=== PATIENT | male | born 1940 | race Caucasian/White ===

== ENCOUNTER 2017-01-01 04:41 | Emergency (ER) | payer OTHER, MEDICARE ==
[~2017-01-01] VITALS: Ht 177.8 cm; Wt 78.3 kg
[2017-01-01 04:50] VITALS: TEMP 36.5; Ht 177.8 cm; Wt 78.3 kg
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
[2017-01-01] MEDS ORDERED: OPTIRAY 320 IV PRN (05:00)
[2017-01-01 05:22] LABS: INR 1.1 (0.9-1.1); PARTIAL THROMBOPLASTIN RATIO 1.2; PROTHROMBIN TIME (PATIENT) 11.3 SECONDS (9.0-12.0)
[2017-01-01 05:27] LABS: BUN/CREATININE RATIO 25.1 (10-20); POTASSIUM 3.5 mmol/L (3.5-5.1)
[2017-01-01 05:27] LABS: ISTAT HEMOGLOBIN 12.2 g/dl (14.0-18.0); ISTAT IONIZED CALCIUM 1.17 mmol/l (1.12-1.32)
[2017-01-01 06:23] VITALS: PULSE 77; O2SAT 95
[2017-01-01] MEDS ORDERED: AMLO-110 PO (06:28)
[2017-01-01] MEDS ORDERED: LISI-725 PO (06:28)
[2017-01-01] MEDS ORDERED: PROP20TA67 PO (06:28)
[2017-01-01] MEDS ORDERED: PRLSR20 PO (06:28)
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
[2017-01-01 07:37] LABS: BASO % 0.6 %; BASO ABS # 0.03 K/uL (0-0.2); COMPLETE YES; EOS % 5.2 %; HEMATOCRIT 36.2 % (42-52); IG% 0.2 %; LYMPH % 28.6 %; LYMPH ABS # 1.38 K/uL (1.2-3.4); MEAN CELL VOLUME 94.8 fL (80-100); MEAN CORPUSCULAR HEMOGLOBIN 32.5 pg (25-34); MEAN CORPUSCULAR HGB CONC 34.3 g/dl (32-36); MEAN PLATELET VOLUME 12.6 fL (7.4-10.4); MONO % 9.5 %; NEUT % 55.9 %; PLATELET COUNT 198 K/uL (130-400); RED BLOOD COUNT 3.82 M/uL (4.7-6.1); WHITE BLOOD COUNT 4.82 K/uL (4.8-10.8)
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
[2017-01-01 08:24] VITALS: BP 146/82
== END 2017-01-01 10:20 | disposition home or self-care (01) ==
LOC: C.EDB 04:43 → EDBD 04:43 → C.EDB 10:20
DX: S30.1XXA Contusion of abdominal wall, initial encounter (principal); M54.2 Cervicalgia; R10.9 Unspecified abdominal pain; V68.5XXA Driver of heavy transport vehicle injured in noncollision transport accident in traffic accident, initial encounter; Y92.410 Unspecified street and highway as the place of occurrence of the external cause; Y99.0 Civilian activity done for income or pay; K80.20 Calculus of gallbladder without cholecystitis without obstruction; I70.0 Atherosclerosis of aorta; I51.7 Cardiomegaly; J43.9 Emphysema, unspecified